=== PATIENT | female | born 1945 | race Caucasian/White ===

== ENCOUNTER 2022-12-23 08:02 | Day surgery (SDC) | payer OTHER ==
[~2022-12-23] VITALS: Ht 172.7 cm; Wt 66.9 kg
[2022-12-23] MEDS ORDERED: LISINOPRIL-HCT1 EAC1 PO (08:28)
[2022-12-23] MEDS ORDERED: ZOLOFT50 MG PO (08:28)
[2022-12-23] MEDS ORDERED: CEFP500 PO (08:28)
[2022-12-23] MEDS ORDERED: CLIMARA1 EACH TOP (08:29)
--- NOTE | 2022-12-23 08:33 | NUR ---
12/23/22 0833 Alycia Smyth AT 0826 PLEDGET AT 0869
[2022-12-23 09:54] VITALS: BP 116/73
== END 2022-12-23 10:15 | disposition home or self-care (01) ==
LOC: ORSCSDS 08:02
PROVIDERS: Student in an Organized Health Care Education/Training Program
PROC: 08RK3JZ Replacement of Left Lens with Synthetic Substitute, Percutaneous Approach (ICD-10-PCS; principal; 2022-12-23 09:30)
DX: H25.13 Age-related nuclear cataract, bilateral (principal); H40.033 Anatomical narrow angle, bilateral; I10 Essential (primary) hypertension; R06.02 Shortness of breath; F41.9 Anxiety disorder, unspecified; F32.A Depression, unspecified; Z87.891 Personal history of nicotine dependence; Z79.899 Other long term (current) drug therapy
CPT/HCPCS: J2250; J3010; J7040; V2632

== ENCOUNTER 2023-01-06 08:48 | Day surgery (SDC) | payer OTHER ==
[~2023-01-06] VITALS: Ht 172.7 cm; Wt 66.8 kg
[~2023-01-06 08:48] MED LIST: CEFP500 PO; CLIMARA1 EACH TOP; LISINOPRIL-HCT1 EAC1 PO; ZOLOFT50 MG PO
[2023-01-06] MEDS ORDERED: ASPI81CH (09:01)
--- NOTE | 2023-01-06 09:05 | NUR ---
01/06/23 09 Diandra Mcpherson TETRACAINE TO RIGHT EYE AT 0905 PLEDGET TO RIGHT EYE AT 0906 BY [email or web address]
[2023-01-06 10:26] VITALS: BP 111/80
== END 2023-01-06 10:26 | disposition home or self-care (01) ==
LOC: ORSCSDS 08:48
PROVIDERS: Student in an Organized Health Care Education/Training Program
PROC: 08RJ3JZ Replacement of Right Lens with Synthetic Substitute, Percutaneous Approach (ICD-10-PCS; principal; 2023-01-06 10:00)
DX: H25.11 Age-related nuclear cataract, right eye (principal); Z96.1 Presence of intraocular lens; F32.A Depression, unspecified; I10 Essential (primary) hypertension; Z79.899 Other long term (current) drug therapy; Z79.82 Long term (current) use of aspirin; Z87.891 Personal history of nicotine dependence
CPT/HCPCS: J2250; J3010; J7040; V2632

== ENCOUNTER 2023-11-21 12:11 | Emergency (ER) | payer OTHER ==
[~2023-11-21] VITALS: Ht 172.7 cm; Wt 68.0 kg
[~2023-11-21 12:11] MED LIST changes: +ASPI81CH
[2023-11-21 12:15] VITALS: BP 151/97
[2023-11-21 12:57] LABS: BASOPHILS ABSOLUTE AUTO 0.03 K/mm3 (0.00-0.23); BASOPHILS PERCENT AUTO 1 % (0-2); EOSINOPHILS ABSOLUTE AUTO 0.06 K/mm3 (0.00-0.68); EOSINOPHILS PERCENT AUTO 1 % (0-6); Hematocrit 42.9 % (33.0-51.0); Hemoglobin 14.6 g/dL (11.5-16.0); IMMATURE GRAN ABSOLUTE AUTO 0.01 K/mm3 (0.00-0.10); IMMATURE GRAN PERCENT AUTO 0 % (0-1); LYMPHOCYTES ABSOLUTE AUTO 1.34 K/mm3 (0.84-5.20); LYMPHOCYTES PERCENT AUTO 22 % (21-46); MONOCYTES ABSOLUTE AUTO 0.54 K/mm3 (0.16-1.47); MONOCYTES PERCENT AUTO 9 % (4-13); Mean Corpuscular HGB 32.7 pg (26.0-34.0); Mean Corpuscular Volume 96 fL (80-100); Mean Platelet Volume 9.5 fL (9.1-12.4); NEUTROPHILS ABSOLUTE AUTO 4.03 K/mm3 (1.96-9.15); NEUTROPHILS PERCENT AUTO 67 % (41-73); Platelet Count 231 K/mm3 (150-400); RDW Coefficient Variation 12.2 % (11.7-14.2); RDW Standard Deviation 43.4 fL (35.1-46.3); Red Blood Cell Count 4.47 M/mm3 (3.80-5.20); White Blood Cell Count 6.01 K/mm3 (4.00-11.30)
[2023-11-21 13:18] LABS: Albumin, Blood 3.9 g/dL (3.4-5.0); Bilirubin, Total 0.6 mg/dL (0.1-1.0); Bun/Creatinine Ratio 24.2 (12.0-20.0); Calcium, Blood 8.7 mg/dL (8.5-10.1); Creatinine, Blood 0.87 mg/dL (0.40-1.00); Globulin, Blood 3.9 g/dL (2.2-4.0); Magnesium, Blood 1.8 mg/dL (1.6-2.4); Phosphorus, Blood 2.4 mg/dL (2.5-4.9); Potassium, Blood 3.7 mmol/L (3.5-5.5); Total Protein, Blood 7.8 g/dL (6.4-8.2)
== END 2023-11-21 15:45 | disposition home or self-care (01) ==
LOC: ER 12:11
PROVIDERS: Student in an Organized Health Care Education/Training Program
DX: M25.511 Pain in right shoulder (principal); M25.512 Pain in left shoulder; M79.651 Pain in right thigh; M62.81 Muscle weakness (generalized); Z79.82 Long term (current) use of aspirin; Z79.899 Other long term (current) drug therapy; Z88.5 Allergy status to narcotic agent; Z88.8 Allergy status to other drugs, medicaments and biological substances
CPT/HCPCS: 80053; 83735; 84100; 85025; 99283

== ENCOUNTER 2024-04-29 11:32 | Day surgery (SDC) | payer OTHER ==
[~2024-04-29] VITALS: Ht 172.7 cm; Wt 64.2 kg
[~2024-04-29 11:32] MED LIST changes: +Lactated Ringer's 1,000 ML IV ONE; +propofoL 50 ML IV ONE
[2024-04-29] MEDS ORDERED: ERGO50000 (12:35)
[2024-04-29] MEDS ORDERED: CALCIUM 500 MG1 EAC2 (12:36)
[2024-04-29] MEDS ORDERED: NAPR500 (12:36)
[2024-04-29] MEDS ORDERED: MAGNESIUM250 M1 (12:37)
[2024-04-29] MEDS ORDERED: Lactated Ringer's 1,000 ML IV ONE (13:01)
[2024-04-29 14:36] VITALS: BP 114/81
== END 2024-04-29 14:30 | disposition home or self-care (01) ==
LOC: ORSCSDS 11:32 → ORSCMMR 13:15 → ORSCSDS 14:30
PROVIDERS: Internal Medicine Gastroenterology
PROC: 0D758ZZ Dilation of Esophagus, Via Natural or Artificial Opening Endoscopic (ICD-10-PCS; principal; 2024-04-29 13:30)
DX: R13.10 Dysphagia, unspecified (principal); I10 Essential (primary) hypertension; M62.82 Rhabdomyolysis; R06.02 Shortness of breath; Z79.82 Long term (current) use of aspirin; Z79.899 Other long term (current) drug therapy
CPT/HCPCS: C1769; J2704; J7120